=== PATIENT | male | born 1990 | race African-American/Black ===

== ENCOUNTER 2018-04-09 05:38 | Emergency (ER) | payer OTHER ==
[2018-04-09] MEDS ORDERED: Lidocaine 1% w/Epinephrine 1:100K 20 ML VIAL ONE (06:08)
[2018-04-09] MEDS ORDERED: Adacel (T-DAP) 0.5 ML VIAL ONE (06:09)
[2018-04-09] MEDS ORDERED: Ketorolac Tromethamine 30 MG/ML VIAL ONE (06:09)
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
== END 2018-04-09 07:23 ==
LOC: ERS 05:38
DX: S01.111A Laceration without foreign body of right eyelid and periocular area, initial encounter (principal); Y08.89XA Assault by other specified means, initial encounter
CPT/HCPCS: 12051; 70486; 90471; 90715; 96372; J1885; J2001